=== PATIENT | female | born 1995 | race Caucasian/White ===

== ENCOUNTER 2017-01-11 06:45 | Inpatient (IN) ==
--- NOTE | 2017-01-11 06:56 | OB/GYN History & Physical ---
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 Joseph and Caryl (120s/70-80 ) PI labs ordered (4) No care in current in third trimester Current visit: Yes Status: Acute (5) Smoking (tobacco) complicating , third trimester Current visit: Yes Status: Acute (6) Obesity complicating in third trimester Current visit: Yes Status: Acute History of Present Illness Chief complaint: Delivery at home HPI: Patient is a 21 year-old female who presents to labor and delivery for delivery at home. She states that she was unaware that she was . The patient states that when she went to go to the bathroom at around 3 am this morning, she was having sharp pains in her abdomen. She says that after pushing for an amount of time she cannot specify, she delivered the baby. Her father heard her calling for him around this time and found her upstairs with the infant and her "covered in blood," which was when he called EMS. She says that she had been taking a multivitamin several months ago, but had stopped. The patient's has been complicated by multiple drug usage, including marijuana, xanax, percocet, and vicodin. She does smoke 1 pack around every 2 weeks. She denies drinking alcohol. She had last seen her PCP, Dr. Hutson, on 06/15/16. More recently, he has seen Dr. Joseph on 12/14/[address] Watson on 12/13/16 for evaluation of discharge from around the umbilicus. Pressures at all these office visits were in the 120s/70-80. She admits to blurry vision that occasionally has occurred over the last few months. She denies AVERY, significant LE edema, and epigastric pain. She denies nausea, vomiting, diarrhea, SOB, and chest pain. Past Med Surg Social Fam HX - Past Medical History Medical history: no medical history - Social History Smoking Status: Never smoker Smokeless Tobacco Status: No Alcohol use: none Obstetrical History - Pregnancies : 1 Para: 1 Term: 1 : 0 Ab's: 0 Livin Medications and Allergies No Known Home Drugs 01/11/17 [History] 3 Allergy/AdvReac Type Severity Reaction Status Date / Time No Known Allergies Allergy Verified 02/21/15 15:37 Review of System OB - Constitutional Constitutional ROS IM: as per HPI - Eyes Eyes: bilateral: blurred vision (occasional) - Cardiovascular Cardiovascular: no chest pain - Respiratory Respiratory: no dyspnea - Gastrointestinal Gastrointestinal: no nausea, no vomiting Exam - Constitutional Constitutional: well developed, well nourished, no acute distress, obese - HEENT HEENT: Mucus Membranes Moist, Other - Neck Neck exam: trachea midline - Lungs Respiratory exam: CTAB - Cardiovascular Cardiovascular exam: RRR, +S1, +S2 - Abdomen Abdomen: Present: non tender - Extremities Deep Tendon Reflex Grade: 2+ Normal - Vagina Vagina: Present: normal moisture (no lacerations noted) - Uterus Uterus exam: Present: normal size (firm), normal contour Results Result Diagrams: 01/11/17 07:05 01/11/17 07:05 All other labs normal.
[2017-01-11] MEDS ORDERED: Naloxone 0.4 MG/ML INJ IVP PRN (06:59)
[2017-01-11] MEDS ORDERED: Ondansetron 4 MG/2 ML VIAL IVP PRN (06:59)
[2017-01-11] MEDS ORDERED: Famotidine 20 MG/2 ML VIAL IVP PRN (06:59)
[2017-01-11 07:21] LABS: Basophils % 0.2 %; Eosinophils % 0.1 %; Hematocrit 33.1 % (35.3-44.9); Hemoglobin 11.3 g/dL (11.5-15.4); Immature Granulocytes % 0.5 % (0-4); Lymphocytes # 1.4 K/mcL (0.6-4.6); Lymphocytes % 8.1 %; Mean Corpuscular HGB Conc 34.1 g/dL (31.6-35.5); Mean Corpuscular Hemoglobin 30.6 pg (28.0-33.3); Mean Corpuscular Volume 89.7 fL (83.0-100.0); Mean Platelet Volume 10.9 fL (9.4-12.4); Monocytes % 5.4 %; Neutrophils # 15.2 K/mcL (1.6-8.9); Platelet Count 278 K/mcL (140-400); Red Blood Count 3.69 M/mcL (3.82-4.97); Red Cell Distribution Width 12.3 % (11.5-14.5); Segmented Neutrophils % 85.7 %
[2017-01-11 07:33] LABS: Alanine Aminotransferase 23 Units/L (0-55); Aspartate Amino Transferase 26 Units/L (5-34); BUN/Creatinine Ratio 14 (6-26); Blood Urea Nitrogen 9 mg/dL (7-20); Lactate Dehydrogenase 202 Units/L (159-327); Uric Acid 5.8 mg/dL (2.6-6.0); eGFR For African Americans > 60 (> 60); eGFR For Non-African Americans > 60 (> 60)
[2017-01-11 08:24] LABS: Bilirubin,Urine Negative (Negative); Blood,Urine Small (Negative); Clarity,Urine Clear (Clear); Color,Urine Yellow (Yellow); Glucose,Urine (UA) Normal (Normal); Ketones,Urine Negative (Negative); Leukocyte Esterase,Urine Small (Negative); Nitrite,Urine Negative (Negative); Protein,Urine Negative (Neg-Trace); Specific Gravity,Urine 1.007 (1.010-1.025); Urobilinogen,Urine Normal (Normal)
[2017-01-11 08:27] LABS: Bacteria,Urine None Seen per hpf (None-Few); Hyaline Casts,Urine None Seen per lpf (None-Few); RBC,Urine 0-3 per hpf (0-3); Squamous Epithelial Cell,Urine Moderate per lpf (None-Few)
[2017-01-11] MEDS ORDERED: Measles/Mumps/Rubella Vacc 0.5 ML VIAL SQ PRN (08:33)
[2017-01-11] MEDS ORDERED: Ibuprofen 600 MG TABLET PO PRN (08:33)
[2017-01-11] MEDS ORDERED: Acetaminophen 325 MG TABLET PO PRN (08:33)
[2017-01-11] MEDS ORDERED: Prenatal Vit/FA 1 EACH TABLET PO SCH (09:00)
[2017-01-11 10:40] LABS: Amphetamine Screen,Urine Negative ng/mL (Cutoff=1000); Barbiturate Screen,Urine Negative ng/mL (Cutoff=200); Benzodiazepines Screen,Urine Negative ng/mL (Cutoff=200); Cannabinoid Screen,Urine Negative ng/mL (Cutoff = 50); Cocaine Screen,Urine Negative ng/mL (Cutoff= 300); Opiate Screen,Urine Negative ng/mL (Cutoff=300); Phencyclidine Screen,Urine Negative ng/mL (Cutoff=25)
[2017-01-11 10:45] LABS: Creatinine,Urine 22 mg/dL; Protein/Creatinine Ratio,Urine 0.32 mg/mg (0-0.20)
[2017-01-11 11:06] LABS: HIV-1&2 Antibody & p24 Ag Nonreactive (Nonreactive); Hepatitis B Surface Antigen Nonreactive (Nonreactive); Hepatitis C Virus Antibody Nonreactive (Nonreactive)
[2017-01-11 13:23] LABS: Varicella Zoster IgG Antibody Positive
[2017-01-11 15:19] LABS: Rubella IgG Antibody POSITIVE (POSITIVE)
[2017-01-12 08:15] VITALS: BP 116/78
--- NOTE | 2017-01-12 09:03 | Discharge Summary ---
Date of Encounter: 01/12/17 Time of Encounter: 09:01 - Discharge Diagnosis (1) Vaginal delivery Priority: Primary Status: Acute Comments: Continue routine pericare discharge home today - Discharge Medications Prescriptions: Ibuprofen [Motrin] 600 mg PO Q6HR PRN #60 tab PRN Reason: Pain Docusate [Colace] 100 mg PO BID PRN #60 capsule PRN Reason: Constipation Home Medications: Docusate [Colace] 100 mg PO BID PRN #60 capsule 01/12/17 [Rx] Ibuprofen [Motrin] 600 mg PO Q6HR PRN #60 tab 01/12/17 [Rx] Allergies/Adverse Reactions: 3 Allergy/AdvReac Type Severity Reaction Status Date / Time No Known Allergies Allergy Verified 02/21/15 15:37 Data Procedures and tests throughout hospitalization: Laboratory Tests 01/11/17 01/11/17 01/11/17 07:05 07:05 07:05 WBC 17.8 H RBC 3.69 L Hgb 11.3 L Hct 33.1 L MCV 89.7 MCH 30.6 MCHC 34.1 RDW 12.3 Plt Count 278 MPV 10.9 Immature Gran % 0.5 Seg Neutrophils % 85.7 Lymphocytes % 8.1 Monocytes % 5.4 Eosinophils % 0.1 Basophils % 0.2 Neutrophils # 15.2 H Lymphocytes # 1.4 Monocytes # 1.0 Eosinophils # 0.0 Basophils # 0.0 BUN 9 Creatinine 0.65 Est GFR ( Amer) > 60 Est GFR (Non-Af Amer) > 60 BUN/Creatinine Ratio 14 Uric Acid 5.8 AST 26 ALT 23 Lactate Dehydrogenase 202 Urine Color Urine Clarity Urine pH Ur Specific [place] Urine Protein Urine Glucose (UA) Urine Ketones Urine Blood Urine Nitrite Urine Bilirubin Urine Urobilinogen Ur Leukocyte Esterase Urine Microscopic RBC Urine Microscopic WBC Ur Squamous Epith Cells Urine Bacteria Hyaline Casts Urine Creatinine Protein/Creatinin Ratio Urine Total Protein Urine Opiates Screen Ur Barbiturates Screen Ur Phencyclidine Scrn Ur Amphetamines Screen U Benzodiazepines Scrn Urine Cocaine Screen U Marijuana (THC) Screen T.pallidum Ab Interpret Hep Bs Antigen Hepatitis C Ab Screen HIV Ag/Ab Combo Qual Rubella IgG Antibody VZV IgG Antibody Blood Type O POSITIVE 01/11/17 01/11/17 01/11/17 07:30 07:30 07:47 WBC RBC Hgb Hct MCV MCH MCHC RDW Plt Count MPV Immature Gran % Seg Neutrophils % Lymphocytes % Monocytes % Eosinophils % Basophils % Neutrophils # Lymphocytes # Monocytes # Eosinophils # Basophils # BUN Creatinine Est GFR ( Amer) Est GFR (Non-Af Amer) BUN/Creatinine Ratio Uric Acid AST ALT Lactate Dehydrogenase Urine Color Yellow Urine Clarity Clear Urine pH 7.0 Ur Specific [place] 1.007 L Urine Protein Negative Urine Glucose (UA) Normal Urine Ketones Negative Urine Blood Small H Urine Nitrite Negative Urine Bilirubin Negative Urine Urobilinogen Normal Ur Leukocyte Esterase Small H Urine Microscopic RBC 0-3 Urine Microscopic WBC 3-5 H Ur Squamous Epith Cells Moderate H Urine Bacteria None Seen Hyaline Casts None Seen Urine Creatinine Protein/Creatinin Ratio Urine Total Protein Urine Opiates Screen Ur Barbiturates Screen Ur Phencyclidine Scrn Ur Amphetamines Screen U Benzodiazepines Scrn Urine Cocaine Screen U Marijuana (THC) Screen T.pallidum Ab Interpret NEGATIVE Hep Bs Antigen Nonreactive Hepatitis C Ab Screen Nonreactive HIV Ag/Ab Combo Qual Nonreactive Rubella IgG Antibody POSITIVE VZV IgG Antibody Positive Blood Type 01/11/17 01/11/17 07:47 07:47 WBC RBC Hgb Hct MCV MCH MCHC RDW Plt Count MPV Immature Gran % Seg Neutrophils % Lymphocytes % Monocytes % Eosinophils % Basophils % Neutrophils # Lymphocytes # Monocytes # Eosinophils # Basophils # BUN Creatinine Est GFR ( Amer) Est GFR (Non-Af Amer) BUN/Creatinine Ratio Uric Acid AST ALT Lactate Dehydrogenase Urine Color Urine Clarity Urine pH Ur Specific [place] Urine Protein Urine Glucose (UA) Urine Ketones Urine Blood Urine Nitrite Urine Bilirubin Urine Urobilinogen Ur Leukocyte Esterase Urine Microscopic RBC Urine Microscopic WBC Ur Squamous Epith Cells Urine Bacteria Hyaline Casts Urine Creatinine 22 Protein/Creatinin Ratio 0.32 H Urine Total Protein < 7 Urine Opiates Screen Negative Ur Barbiturates Screen Negative Ur Phencyclidine Scrn Negative Ur Amphetamines Screen Negative U Benzodiazepines Scrn Negative Urine Cocaine Screen Negative U Marijuana (THC) Screen Negative T.pallidum Ab Interpret Hep Bs Antigen Hepatitis C Ab Screen HIV Ag/Ab Combo Qual Rubella IgG Antibody VZV IgG Antibody Blood Type Labs on day of discharge: Labs from last 24 hours 01/11/17 01/11/17 01/11/17 07:47 07:47 07:30 Urine Creatinine 22 Protein/Creatinin Ratio 0.32 H Urine Total Protein < 7 Urine Opiates Screen Negative Ur Barbiturates Screen Negative Ur Phencyclidine Scrn Negative Ur Amphetamines Screen Negative U Benzodiazepines Scrn Negative Urine Cocaine Screen Negative U Marijuana (THC) Screen Negative T.pallidum Ab Interpret NEGATIVE Hep Bs Antigen Hepatitis C Ab Screen HIV Ag/Ab Combo Qual Rubella IgG Antibody POSITIVE VZV IgG Antibody Positive 01/11/17 07:30 Urine Creatinine Protein/Creatinin Ratio Urine Total Protein Urine Opiates Screen Ur Barbiturates Screen Ur Phencyclidine Scrn Ur Amphetamines Screen U Benzodiazepines Scrn Urine Cocaine Screen U Marijuana (THC) Screen T.pallidum Ab Interpret Hep Bs Antigen Nonreactive Hepatitis C Ab Screen Nonreactive HIV Ag/Ab Combo Qual Nonreactive Rubella IgG Antibody VZV IgG Antibody Date of admission: 01/11/17 06:45 Primary care physician: Jesse Hutson, Consults: 01/11/17 08:33 Consult to [employer] [CONS] Routine Comment: Vaginal delivery, consult needed 01/11/17 09:17 Consult to [employer] [CONS] Routine Reason For Exam: . Reason for SW Consult: no care, "did not know I was " no supplies Discharging clinician: Lourdes Blas Anticipated date of discharge: 01/12/17 - Patient Status Disposition: Home, Self-Care Condition: Good Functional capacity at discharge: independent ambulation - Discharge Instructions Follow Up With: Jesse Hutson DO [Primary Care Provider] - Basia Cobb CNM [Advanced Practice Nurse] - - Diet and Activity Activity: increase activity as tolerated Diet: regular diet Hospital Course Reason for admission: other (Patient delivered at home) Delivery: Episiotomy: none Laceration: none Other procedures: none complications: none Discharge diagnosis: IUP at term delivered [place] baby: male (breast feeding) Time Attestation: Total time spent providing and/or coordinating discharge services: Time Spent: Less than 30 minutes Exam - Constitutional Vitals: Temp Pulse Resp BP Pulse Ox 98.1 F 75 16 116/78 98 01/12/17 08:14 01/12/17 08:14 01/12/17 08:14 01/12/17 08:14 01/12/17 08:14 General appearance IM: A&O X 3, pleasant, answers questions appropriately - Respiratory Respiratory exam: Present: CTAB - Cardiovascular Cardiovascular exam IM: Present: RRR, +S1, +S2 - GI/Abdominal GI/Abdominal exam IM: normal bowel sounds - Uterine Tone: Firm Uterus Position: At Umbilicus, Midline - Extremities Exam Extremities exam IM: Present: full ROM, normal capillary refill, pedal edema - Neurological Exam Neurological exam: alert, oriented X3, reflexes normal
== END 2017-01-12 11:09 | disposition home or self-care (01) | DRG 775 ==
LOC: 1NENULAB 06:45 → 1NENUOBS 08:32
PROVIDERS: ADMIT Advanced Practice Midwife; ATTEND Advanced Practice Midwife